=== PATIENT | male | born 1950 | race Caucasian/White ===

== ENCOUNTER 2021-04-30 15:33 | Emergency (ER) | payer OTHER ==
[2021-04-30 16:01] LABS: #Eosinphils 0.1 10x3/uL (0.0-0.5); #Monocytes 0.6 10x3/uL (0.0-1.1); #Neutrophils 6.6 10x3/uL (1.5-8.4); %Basophils 0.5 % (0.0-2.0); %Eosinophils 1.5 % (0.0-6.0); %Lymphocytes 13.8 % (18.0-47.0); %Monocytes 7.4 % (0.0-10.0); %Neutrophils 76.3 % (40.0-75.0); Hemoglobin 8.7 g/dL (13.5-17.5); Mean Corpuscular HGB CONC 30.7 g/dL (32.0-36.0); Mean Corpuscular Hemoglobin 26.5 pg (27.0-33.0); Mean Corpuscular Volume 86.3 fl (81.2-95.1); Mean Platelet Volume 9.7 fl (7.4-10.4); Platelet Count 226 10x3/uL (150-450); RBC Distribution Width 14.1 % (11.5-14.5); Red Blood Cell (RBC) Count 3.28 10x6/uL (4.32-5.72); White Blood Cell (WBC) Count 8.7 10x3/uL (3.5-10.5)
[2021-04-30 16:04] LABS: ALT (SGPT) 15 U/L (8-55); AST (SGOT) 28 U/L (5-34); Albumin 3.3 g/dL (3.4-4.8); Alkaline Phosphatase 85 U/L (40-110); Anion Gap 13 mmol/L (10-20); BUN (Urea Nitrogen) 13 mg/dL (8.4-25.7); Bilirubin, Total 0.5 mg/dL (0.2-1.2); Calc. Creatinine Clearance 0 mL/min (70-130); Calcium 8.2 mg/dL (7.8-10.44); Carbon Dioxide 24 mmol/L (23-31); Chloride 107 mmol/L (98-107); Globulin 2.6 g/dL (2.4-3.5); Glucose 108 mg/dL (83-110); Potassium 3.7 mmol/L (3.5-5.1); Protein, Total 5.9 g/dL (5.8-8.1); Sodium 140 mmol/L (136-145)
[2021-04-30 16:36] LABS: CKMB 7.7 ng/mL (0-6.6)
[2021-04-30] MEDS ORDERED: Morphine 4 MG/ML VIAL ONE (17:13)
[2021-04-30] MEDS ORDERED: Aspirin 325 MG TAB ONE (19:47)
[2021-04-30 19:48] LABS: SARS-CoV-2 NAA Rapid Test Not Detected (NotDetected)
[2021-04-30 20:26] LABS: CKMB 7.5 ng/mL (0-6.6); Critical Call CKMB RESULT DECREASING
[2021-04-30 20:52] LABS: INR-International Normal Ratio 1.2; PTT 27.3 sec (22.0-33.0); Prothrombin Time 12.8 sec (9.5-12.1)
[2021-04-30 21:30] LABS: Actual Bicarbonate (HCO3v) 26 mEq/L (22-28); Base Excess 0.7 mEq/L (-2.0 to +3.0); Calcium, Ionized (venous) 1.14 mmol/L (1.16-1.32); Chloride (VBG) 105 mmol/L (98-106); Hemoglobin (Hb) 10.2 g/dL (12.6-17.4); Potassium (VBG) 3.65 mmol/L (3.70-5.30); Puncture Site Other Site; Sodium 138.2 mmol/L (133-146); pH (venous) 7.37 (7.32-7.43)
[2021-04-30] MEDS ORDERED: Enoxaparin Sodium 80 MG/0.8 ML SYRINGE ONE (22:10)
[2021-05-01 00:53] LABS: CKMB 6.4 ng/mL (0-6.6)
== END 2021-05-01 00:40 | disposition short-term general hospital (02) ==
LOC: CSHERS 15:33 → EEVIPCON 15:33 → CSHERS 05-01 00:40
DX: R77.8 Other specified abnormalities of plasma proteins (principal); I25.10 Atherosclerotic heart disease of native coronary artery without angina pectoris; J45.909 Unspecified asthma, uncomplicated; M19.90 Unspecified osteoarthritis, unspecified site; E03.9 Hypothyroidism, unspecified; E78.5 Hyperlipidemia, unspecified; I10 Essential (primary) hypertension; Z20.822 Contact with and (suspected) exposure to COVID-19; Z79.899 Other long term (current) drug therapy
CPT/HCPCS: 36415; 71045; 75635; 80053; 82553; 82805; 83880; 84484; 85025; 85610; 85730; 93005; 94640; 96372; 96374; J1650; J2270; J7620; U0002